=== PATIENT | female | born 1960 | race Caucasian/White ===

== ENCOUNTER 2020-04-25 16:28 | Emergency (ER) | payer MEDICAID ==
[2020-04-25 16:59] VITALS: BP 169/88; PULSE 87
[2020-04-25] MEDS ORDERED: Ondansetron 4 MG Tab.DIS PO ONE (17:19)
[2020-04-25] MEDS ORDERED: Loperamide 2 MG Cap PO ONE (17:32)
--- NOTE | 2020-04-25 17:34 | EDM.PDOC ---
ED HPI GENERAL MEDICAL PROBLEM - General Chief Complaint: General Stated Complaint: COVID POSITIVE Time Seen by Provider: 04/25/20 17:20 Source of Information: Reports: Patient, Old Records, RN History Limitations: Reports: No Limitations - History of Present Illness INITIAL COMMENTS - FREE TEXT/NARRATIVE: 60 yo female with Covid dx 10 days ago called her provider today and reported continuing loose stools, nausea and vomiting, and oxygen levels down to the 90% range. - Related Data Allergies Allergy/AdvReac Type Severity Reaction Status Date / Time codeine Allergy Nausea and Verified 10/07/18 08:52 Vomiting Penicillins Allergy Hives Verified 10/07/18 08:52 Home Meds: Home Meds Aspirin [Adult Low Dose Aspirin EC] 81 mg PO DAILY 10/12/13 [History] Cholecalciferol (Vitamin D3) [Vitamin D] 2,000 unit PO DAILY 10/12/13 [History] Cyanocobalamin (Vitamin B-12) [Vitamin B-12] 1,000 mcg PO DAILY 10/12/13 [History] Ubidecarenone [Coenzyme Q10] 100 mg PO DAILY 10/12/13 [History] Vitamin E 200 units PO DAILY 10/12/13 [History] atorvaSTATin [Lipitor] 40 mg PO BEDTIME 10/12/13 [History] lisinopriL [Prinivil] 20 mg PO DAILY 10/12/13 [History] metFORMIN [Glucophage] 1,000 mg PO BID 10/12/13 [History] Furosemide 20 mg PO DAILY 10/04/18 [History] Insulin Aspart [NovoLOG] 4 units SQ ASDIRECTED 10/04/18 [History] Insulin Degludec [Tresiba Flextouch U-200] 70 units SQ DAILY 10/04/18 [History] Ondansetron [Zofran ODT] 4 mg PO Q6H PRN #10 tab.dis 04/25/20 [Rx] Past Medical History Endocrine/Metabolic History: Reports: Diabetes, Type II - Infectious Disease History Infectious Disease History: Reports: Chicken Pox, Measles, Mumps - Past Surgical History HEENT Surgical History: Reports: Tonsillectomy Musculoskeletal Surgical History: Reports: Knee Replacement Social & Family History - Tobacco Use Tobacco Use Status *Q: Never Tobacco User - Caffeine Use Caffeine Use: Reports: Soda ED ROS GENERAL - Review of Systems Review Of Systems: See Below Constitutional: Reports: No Symptoms HEENT: Reports: No Symptoms Respiratory: Reports: No Symptoms Cardiovascular: Reports: No Symptoms GI/Abdominal: Reports: Diarrhea, Nausea, Vomiting. Denies: Constipation, Hematochezia, Melena : Reports: No Symptoms Musculoskeletal: Reports: No Symptoms Skin: Reports: No Symptoms Neurological: Reports: No Symptoms ED EXAM, GENERAL - Physical Exam Exam: See Below Exam Limited By: No Limitations General Appearance: Alert, WD/WN, No Apparent Distress, Obese Eye Exam: Bilateral Eye: Normal Inspection Ears: Normal External Exam, Normal Canal, Hearing Grossly Normal, Normal TMs Ear Exam: Bilateral Ear: Auricle Normal, Canal Normal Nose: Normal Inspection, No Blood Throat/Mouth: Normal Inspection, Normal Lips, Normal Oropharynx, Normal Voice, No Airway Compromise Head: Atraumatic, Normocephalic Neck: Normal Inspection Respiratory/Chest: No Respiratory Distress, Lungs Clear, Normal Breath Sounds, No Accessory Muscle Use Cardiovascular: Regular Rate, Rhythm, No Edema GI/Abdominal: Normal Bowel Sounds, Soft, Non-Tender, No Distention Back Exam: Normal Inspection. No: CVA Tenderness (R), CVA Tenderness (L) Extremities: Normal Inspection, Normal Range of Motion, Non-Tender, No Pedal Edema Neurological: Alert, Oriented, CN II-XII Intact, Normal Cognition, No Motor/Sensory Deficits Psychiatric: Normal Affect, Normal Mood Skin Exam: Warm, Dry, Intact, Normal Color, No Rash Course - Vital Signs Last Recorded V/S: Last Vital Signs Temp 35.3 C L 04/25/20 17:03 Pulse 87 04/25/20 17:03 Resp 16 04/25/20 17:03 BP 169/88 H 04/25/20 17:03 Pulse Ox 94 L 04/25/20 17:03 - Orders/Labs/Meds Labs: Laboratory Tests 04/25/20 Range/Units 17:56 Sodium 138 L (140-148) mmol/L Potassium 3.5 L (3.6-5.2) mmol/L Chloride 102 (100-108) mmol/L Carbon Dioxide 27 (21-32) mmol/L Anion Gap 12.5 (5.0-14.0) mmol/L BUN 16 (7-18) mg/dL Creatinine 0.9 (0.6-1.0) mg/dL Est Cr Clr Drug Dosing 61.45 mL/min Estimated GFR (MDRD) > 60 (>60) Glucose 201 H (74-106) mg/dL Calcium 9.2 (8.5-10.1) mg/dL Meds: Medications Discontinued Medications Generic Name Dose Route Start Last Admin Trade Name Freq PRN Reason Stop Dose Admin Loperamide HCl 4 mg 04/25/20 17:32 04/25/20 17:42 Imodium PO 04/25/20 17:33 4 mg ONETIME ONE Administration Ondansetron HCl 4 mg 04/25/20 17:19 04/25/20 17:28 Zofran Odt PO 04/25/20 17:20 4 mg ONETIME ONE Administration Departure - Departure Time of Disposition: 18:25 Disposition: Home, Self-Care 01 Condition: Fair Clinical Impression: COVID-19 Diarrhea Qualifiers: Diarrhea type: infectious Qualified Code(s): A09 - Infectious gastroenteritis and colitis, unspecified Nausea and vomiting Qualifiers: Vomiting type: unspecified Vomiting Intractability: non-intractable Qualified Code(s): R11.2 - Nausea with vomiting, unspecified - Discharge Information *PRESCRIPTION DRUG MONITORING PROGRAM REVIEWED*: Not Applicable *COPY OF PRESCRIPTION DRUG MONITORING REPORT IN PATIENT JOSE: Not Applicable Prescriptions: Ondansetron [Zofran ODT] 4 mg PO Q6H PRN #10 tab.dis PRN Reason: Nausea Referrals: Chencho Donovan MD [Primary Care Provider] - Forms: ED Department Discharge Additional Instructions: Use Zofran as needed for nausea([facility]). Use loperamide per package instructions for diarrhea. Drink a sugar-free sport drink for hydration. Continue isolation as long as you remain ill. Recheck with your provider as needed. Sepsis Event Note (ED) - Evaluation Sepsis Screening Result: No Definite Risk - Focused Exam Vital Signs: Vital Signs Temp Pulse Resp BP Pulse Ox 04/25/20 17:03 35.3 C L 87 16 169/88 H 94 L 04/25/20 16:58 35.3 C L 87 16 169/88 H 94 L
== END 2020-04-25 18:31 | disposition home or self-care (01) ==
LOC: JP.ED 16:28
DX: U07.1 COVID-19 (principal); E11.9 Type 2 diabetes mellitus without complications; Z88.5 Allergy status to narcotic agent; Z88.0 Allergy status to penicillin; Z79.4 Long term (current) use of insulin
CPT/HCPCS: 36415; 80048; 99284; A9270; 99283

== ENCOUNTER 2024-04-07 06:47 | Day surgery (SDC) | payer OTHER ==
[2024-04-07] MEDS ORDERED: fentaNYL 50 MCG/ML SDV ONE (07:13)
[2024-04-07] MEDS ORDERED: Propofol 200 MG/20 ML SDV ONE ×2 (07:13→08:24)
[2024-04-07] MEDS: Lactated Ringers 1,000 ML IV SCH (08:03)
[2024-04-07 09:50] VITALS: BP 144/68; PULSE 64
== END 2024-04-07 09:58 | disposition home or self-care (01) ==
LOC: JP.SDS 06:47
PROVIDERS: ATTEND Surgery
DX: Z12.11 Encounter for screening for malignant neoplasm of colon (principal); I10 Essential (primary) hypertension; E11.9 Type 2 diabetes mellitus without complications; E66.9 Obesity, unspecified
CPT/HCPCS: 45378; J2704; J3010; J7120; 00812-QZ